=== PATIENT | female | born 1950 | race Caucasian/White ===

== ENCOUNTER 2017-01-02 06:21 | Emergency (ER) | payer MEDICARE, BC ==
[2017-01-02] MEDS ORDERED: ONDANSETRON HCL IV 4 MG/2 ML VIAL IV ONE (06:50)
[2017-01-02] MEDS ORDERED: KETOROLAC 30 MG/ML VIAL IVP ONE (06:50)
[2017-01-02] MEDS ORDERED: 0.9 % SODIUM CHLORIDE 1,000 ML BAG IV ONE (06:50)
--- NOTE | 2017-01-02 06:56 | Emergency Department Record ---
History of Present Illness - General Source: Patient Mode of Arrival: Ambulatory Limitations: No limitations - History of Present Illness Initial comments: pt has frequency and urgency but no dysuria. she states when she tries to urinate she cant though she feels like she has to go.. she has n but nov/c/d. she has r flank pain that wraps around to rlq. Complaint: Other Onset/Timin -: Hour(s) Location: RLQ Radiation: R flank Severity scale (1-10): 10 Quality: Aching Consistency: Constant Improves with: None Worsens with: None Associated Symptoms: Nausea/vomiting, Other <Eliza Castañeda - Last Filed: 01/02/17 06:49> <Michael Burnett - Last Filed: 01/02/17 08:47> - General Chief complaint: Female Urogenital Problem Stated complaint: POSS. UTI Time Seen by Provider: 01/02/17 06:42 - Related Data Home Medications Medication Instructions Recorded Confirmed Last Taken Lisinopril [Lisinopril] 10 mg PO DAILY 01/18/15 01/02/17 01/18/15 Alendronate Sodium [Fosamax] 70 mg PO WEEKLY 11/29/15 01/02/17 Unknown Hydrocodone/Acetaminophen 1 tab PO QID 11/29/15 01/02/17 Unknown [Hydrocodon-Acetaminoph 7.5-325] Previous Rx's Medication Instructions Recorded Ciprofloxacin HCl [Cipro] 1 tab PO Q12H #10 tab 01/02/17 Ibuprofen [Motrin] 800 mg PO TID PRN #20 tab 01/02/17 Tamsulosin HCl [Flomax] 0.4 mg PO DAILY #5 cap.er.24h 01/02/17 Allergies Allergy/AdvReac Type Severity Reaction Status Date / Time codeine Allergy VOMITING Verified 07/21/14 12:44 diazepam [From Valium] Allergy TACHYCARDIA Verified 01/18/15 19:52 meperidine HCl [From Demerol] Allergy ITCHING Verified 07/21/14 12:44 Penicillins Allergy HIVES Verified 07/21/14 12:44 Travel Screening - Travel/Exposure Within Last 30 Days Have you traveled within the last 30 days?: No - Travel Symptoms Symptom Screening: None <Eliza Castañeda - Last Filed: 01/02/17 06:49> Review of Systems Reviewed: No additional complaints except as noted below Constitutional: Reports: As per HPI. Denies: Chills, Fever, Malaise, Night sweats, Weakness, Weight change Eyes: Reports: As per HPI. Denies: Eye discharge, Eye pain, Photophobia, Vision change ENT: Reports: As per HPI. Denies: Congestion, Dental pain, Ear pain, Epistaxis , Hearing loss, Throat pain Respiratory: Reports: As per HPI. Denies: Cough, Dyspnea, Hemoptysis, Stridor, Wheezes Cardiovascular: Reports: As per HPI. Denies: Arrhythmia, Chest pain, Dyspnea on exertion, Edema, Murmurs, Orthopnea, Palpitations, Paroxysmal nocturnal dyspnea, Rheumatic Fever, Syncope Endocrine: Reports: As per HPI. Denies: Fatigue, Heat or cold intolerance, Polydipsia, Polyuria Gastrointestinal: Reports: As per HPI. Denies: Abdominal pain, Constipation, Diarrhea, Hematemesis, Hematochezia, Melena, Nausea, Vomiting Genitourinary: Reports: As per HPI. Denies: Abnormal menses, Discharge, Dyspareunia, Dysuria, Frequency, Hematuria, Incontinence, Retention, Urgency Musculoskeletal: Reports: As per HPI. Denies: Arthralgia, Back pain, Gout, Joint swelling, Myalgia, Neck pain Skin: Reports: As per HPI. Denies: Bruising, Change in color, Change in hair/ nails, Lesions, Pruritus, Rash Neurological: Reports: As per HPI. Denies: Abnormal gait, Confusion, Headache, Numbness, Paresthesias, Seizure, Tingling, Tremors, Vertigo, Weakness Psychiatric: Reports: As per HPI. Denies: Anxiety, Auditory hallucinations, Depression, Homicidal thoughts, Suicidal thoughts, Visual hallucinations Hematological/Lymphatic: Reports: As per HPI. Denies: Anemia, Blood Clots, Easy bleeding, Easy bruising, Swollen glands <Eliza Castañeda L - Last Filed: 01/02/17 06:49> Past Medical History - SOCIAL HISTORY Smoking Status: Never smoker - RESPIRATORY Hx Respiratory Disorders: No - CARDIOVASCULAR Hx Cardio Disorders: Yes Hx Hypertension: Yes Comment:: hypercholesteremia - NEURO Hx Neuro Disorders: No - GI Hx GI Disorders: No - Hx Genitourinary Disorders: No - ENDOCRINE Hx Endocrine Disorders: No - MUSCULOSKELETAL Hx Musculoskeletal Disorders: Yes Comment:: osteopenia; Shingles - PSYCH Hx Psych Problems: No - HEMATOLOGY/ONCOLOGY Hx Hematology/Oncology Disorders: No <GarryEliza - Last Filed: 01/02/17 06:49> Family Medical History Any Significant Family History?: Yes Hx Heart Disease: Grandparents <Antoni Castañedadwaine Govea - Last Filed: 01/02/17 06:49> Physical Exam - General General Appearance: Alert, Oriented x3, Cooperative, Mild distress - Head Head exam: Normal inspection - Eye Eye exam: Normal appearance, PERRL, EOMI Pupils: Normal accommodation - ENT ENT exam: Normal exam, Mucous membranes moist, Normal external ear exam, Normal orophraynx Ear exam: Normal external inspection. negative: External canal tenderness Nasal Exam: Normal inspection. negative: Discharge, Sinus tenderness Mouth exam: Normal external inspection, Tongue normal Teeth exam: Normal inspection. negative: Dental caries Throat exam: Normal inspection. negative: Tonsillar erythema, Tonsillar exudate - Neck Neck exam: Normal inspection, Full ROM. negative: Tenderness - Respiratory Respiratory exam: Normal lung sounds bilaterally. negative: Respiratory distress - Cardiovascular Cardiovascular Exam: Regular rate, Normal rhythm, Normal heart sounds - GI/Abdominal GI/Abdominal exam: Soft, Normal bowel sounds, Other (no reproducible tenderness) . negative: Tenderness - Rectal Rectal exam: Deferred - exam: Deferred - Extremities Extremities exam: Normal inspection, Full ROM, Normal capillary refill. negative: Tenderness - Back Back exam: Reports: Normal inspection, Full ROM. Denies: Muscle spasm, Rash noted, Tenderness - Neurological Neurological exam: Alert, CN II-XII intact, Normal gait, Oriented X3 - Psychiatric Psychiatric exam: Normal affect, Normal mood - Skin Skin exam: Dry, Intact, Normal color, Warm <GarryAntoniEliza L - Last Filed: 01/02/17 06:49> Course Vital Signs 01/02/17 06:27 Pulse Rate 84 Respiratory 20 Rate Blood Pressure 149/67 Pulse Ox 97 - Reevaluation(s) Reevaluation #1: 01/02/17 06:[address] burnett <Eliza Castañeda - Last Filed: 01/02/17 06:49> Vital Signs 01/02/17 01/02/17 01/02/17 06:27 07:57 08:38 Temperature 97.8 F 97.9 F Pulse Rate 84 Pulse Rate [ 78 Left] Respiratory 20 20 20 Rate Blood Pressure 149/67 Blood Pressure 134/82 [Left] Pulse Ox 97 97 98 - Reevaluation(s) Reevaluation #1: The patient is doing much better at this time. Her pain has completely resolved and she denies any nausea or vomiting. I did explain to her the CT results and the need for F/U. I also did discuss the case with her PCP Dr. Valdivia and she will see the patient early next week if F/U. The patient is to return to the ER for any increased pain, fever, or vomiting. 01/02/17 08:43 <Michael Burnett - Last Filed: 01/02/17 08:47> Medical Decision Making - Management Options MDM Management: Additional Work-up Planned (e.g. ADM/Transfer/OP Study) - Data Complexity MDM Data: Labs Ordered and/or Reviewed, X-Ray Ordered and/or Reviewed - Radiology Data Radiology results: Report reviewed, Image reviewed <Eliza Castañeda - Last Filed: 01/02/17 06:49> - Data Complexity MDM Data: Labs Ordered and/or Reviewed, X-Ray Ordered and/or Reviewed - Lab Data Result diagrams: 01/02/17 07:05 01/02/17 07:05 Lab Results 01/02/17 01/02/17 01/02/17 Range/Units 07:05 07:05 07:45 WBC 11.0 (4.2-12.2) K/uL RBC 5.20 (3.80-5.40) M/uL Hgb 14.7 (11.6-16.0) gm/dl Hct 44.4 (35.0-47.0) % MCV 85.4 (81-97) fl MCH 28.3 (27-33) pg MCHC 33.1 (32-36) g/dl RDW 13.3 (11.5-14.5) % Plt Count 317 (130-400) K/uL MPV 9.4 (7.4-10.4) fl Gran % 78.3 (47-80) % Lymphocytes % 13.7 L (16-45) % Monocytes % 6.0 (0-9) % Eosinophils % 1.5 (0-6) % Basophils % 0.5 (0-6) % Sodium 139 (136-145) mmol/L Potassium 3.8 (3.5-5.1) mmol/L Chloride 104 (98-107) mmol/L Carbon Dioxide 27.5 (22-30) mmol/L Anion Gap 7.5 (7-16) BUN 19 H (7-17) mg/dL Creatinine 0.9 (0.52-1.04) mg/dL Estimated GFR > 60 ml/min Random Glucose 152 H (70-110) mg/dL Calcium 9.0 (8.5-10.1) mg/dL Urine Color Yellow Urine Appearance Clear Urine pH 5.5 (5.0-8.0) Ur Specific [place] >= 1.030 (1.002-1.030) Urine Protein Negative (NEGATIVE) Urine Glucose (UA) Negative (NEGATIVE) Urine Ketones Negative (NEGATIVE) Urine Blood Moderate (NEGATIVE) Urine Nitrite Negative (NEGATIVE) Urine Bilirubin Negative (NEGATIVE) Urine Urobilinogen 0.2 (0.20 - 1.00) E.U./dL Ur Leukocyte Esterase Negative (NEGATIVE) Urine RBC 16 - 25 (NONE SEEN) Urine WBC 3 - 5 (0-2/hpf) Ur Epithelial Cells 7 - 10 (FEW) Urine Bacteria None seen - Radiology Data Radiology results: Report reviewed (CT: 1 mm stone at the R UVJ with mild hydro. ) <Michael Burnett - Last Filed: 01/02/17 08:47> Disposition <Eliza Castañeda - Last Filed: 01/02/17 06:49> Disposition: Discharge Time of Disposition: 08:47 <Michael Burnett - Last Filed: 01/02/17 08:47> Clinical Impression: Ureteric Colic Disposition: Home, Self-Care Condition: (1) Good Instructions: Renal Colic (ED) Additional Instructions: Please drink plenty of fluids and take the Motrin, Flomax and Cipro as directed. Please see your PCP early next week as planned. Please return to the ER for any increased pain, fever, or vomiting. Prescriptions: Ciprofloxacin HCl [Cipro] 1 tab PO Q12H #10 tab Tamsulosin HCl [Flomax] 0.4 mg PO DAILY #5 cap.er.24h Ibuprofen [Motrin] 800 mg PO TID PRN #20 tab PRN Reason: Pain Forms: Patient Portal Access
[2017-01-02 07:11] LABS: BASO % 0.5 % (0-6); EOS % 1.5 % (0-6); GRAN % 78.3 % (47-80); HEMATOCRIT 44.4 % (35.0-47.0); HEMOGLOBIN 14.7 gm/dl (11.6-16.0); LYMPH % 13.7 % (16-45); MEAN CELL VOLUME 85.4 fl (81-97); MEAN CORPUSCULAR HEMOGLOBIN 28.3 pg (27-33); MEAN CORPUSCULAR HGB CONC 33.1 g/dl (32-36); MEAN PLATELET VOLUME 9.4 fl (7.4-10.4); PLATELET COUNT 317 K/uL (130-400); RED CELL DISTRIBUTION WIDTH 13.3 % (11.5-14.5)
[2017-01-02 07:23] LABS: ANION GAP 7.5 (7-16); BLOOD UREA NITROGEN 19 mg/dL (7-17); CARBON DIOXIDE 27.5 mmol/L (22-30); CREATININE 0.9 mg/dL (0.52-1.04); EST GLOMERULAR FILTRATION RATE > 60 ml/min; GLUCOSE,RANDOM 152 mg/dL (70-110)
[2017-01-02 07:53] LABS: URINE APPEARANCE CLEAR; URINE BILIRUBIN NEGATIVE (NEGATIVE); URINE BLOOD MODERATE (NEGATIVE); URINE COLOR YELLOW; URINE GLUCOSE (UA) NEGATIVE (NEGATIVE); URINE KETONE NEGATIVE (NEGATIVE); URINE LEUKOCYTE ESTERASE NEGATIVE (NEGATIVE); URINE NITRITE NEGATIVE (NEGATIVE); URINE PROTEIN NEGATIVE (NEGATIVE); URINE UROBILINOGEN 0.2 E.U./dL (0.20 - 1.00)
[2017-01-02 08:03] LABS: URINE BACTERIA NONE SEEN; URINE RBC 16 - 25 (NONE SEEN)
[2017-01-02] MEDS ORDERED: CIPROFLOXACIN HCL 250 MG TABLET PO ONE (08:37)
[2017-01-02] MEDS ORDERED: CIPROFLOXACIN HCL 500 MG TABLET PO ONE (08:46)
--- NOTE | 2017-01-03 14:29 | CT SCAN REPORT ---
EXAM: CT OF THE ABDOMEN AND PELVIS WITHOUT CONTRAST HISTORY: RIGHT FLANK PAIN. TECHNIQUE: Sequential axial images were obtained from the diaphragms through the ischiorectal fossa without intravenous or oral contrast administration. FINDINGS: There is a 1 mm punctate calcification at the right ureteral vesicular junction. There is mild right hydronephrosis with perinephric and periureteral fat stranding. There are additional nonobstructing calculi in the right kidney. The nonopacified liver appears normal. There is a small sliding type hiatal hernia. The gallbladder has been surgically removed. The pancreas and spleen appear normal. The adrenal glands appear normal. The small bowel appears normal. The appendix is visualized and appears normal. The colon appears normal. The osseous structures are normal. IMPRESSION: 1 MM OBSTRUCTING CALCULUS AT THE RIGHT URETERAL VESICULAR JUNCTION. THIS PRODUCES MILD RIGHT HYDRONEPHROSIS WITH PERINEPHRIC AND PERIURETERAL FAT STRANDING. NONOBSTRUCTING CALCULI IN THE RIGHT KIDNEY. JOB NUMBER: [id number] MTDD
== END 2017-01-02 09:03 | disposition home or self-care (01) ==
LOC: ER 06:21
DX: N13.2 Hydronephrosis with renal and ureteral calculous obstruction (principal); R10.31 Right lower quadrant pain; R11.0 Nausea
CPT/HCPCS: 99284 ×2; 96374; 96375; 85025; 80048; 81001; 74176; J1885; J2405; J7030

== ENCOUNTER 2017-12-28 21:26 | Emergency (ER) | payer MEDICARE, BC ==
[2017-12-28] MEDS ORDERED: PROPARACAINE HCL OPTH 15ML BTL OPTH ONE (22:07)
--- NOTE | 2017-12-28 22:13 | Emergency Department Record ---
History of Present Illness - General Chief complaint: Eye Problem Stated complaint: FELL [employer] LT EYE Time Seen by Provider: 12/28/17 22:07 Source: Patient Mode of Arrival: Ambulatory Limitations: No limitations Travel/Exposure to [facility] Within 21 Days of Symptoms: No - History of Present Illness Initial comments: 67 yo female presents to ED for evaluation of injury to the left eye 1 hour ago. Patient reports that she was carrying in her groceries when she slipped and fell, small branch caused injury to the left medial eye. Patient denies change in vision, but was concerned about redness following her injury. MD chief complaint: Eye pain, Eye redness, Eye injury Onset/Timin -: Hour(s) Onset Description: Sudden Location: Left eye Place: Home If Injury: Direct trauma Eye Symptoms: Foreign body sensation Severity: Mild Consistency: Constant Context: Injury Treatments Prior to Arrival: None - Related Data Visual acuity (L) = 20/: 20 Visual acuity (R) = 20/: 20 With correction: No Previous Rx's Medication Instructions Recorded Ciprofloxacin HCl [Cipro] 1 tab PO Q12H #10 tab 01/02/17 Ibuprofen [Motrin] 800 mg PO TID PRN #20 tab 01/02/17 Tamsulosin HCl [Flomax] 0.4 mg PO DAILY #5 cap.er.24h 01/02/17 Allergies Allergy/AdvReac Type Severity Reaction Status Date / Time codeine Allergy VOMITING Verified 07/21/14 12:44 diazepam [From Valium] Allergy TACHYCARDIA Verified 01/18/15 19:52 meperidine HCl [From Demerol] Allergy ITCHING Verified 07/21/14 12:44 Penicillins Allergy HIVES Verified 07/21/14 12:44 Travel Screening - Travel/Exposure Within Last 30 Days Have you traveled within the last 30 days?: No - Travel/Exposure Within Last Year Have you traveled outside the [place] in the last year?: No - Additonal Travel Details Have you been exposed to anyone with a communicable illness?: No Review of Systems Constitutional: Denies: Chills, Fever, Malaise, Night sweats Eyes: Reports: Eye pain. Denies: Eye discharge ENT: Denies: Congestion, Ear pain, Epistaxis Respiratory: Denies: Cough, Dyspnea Cardiovascular: Denies: Chest pain, Dyspnea on exertion Endocrine: Denies: Fatigue, Heat or cold intolerance Gastrointestinal: Denies: Abdominal pain, Nausea, Vomiting Genitourinary: Denies: Incontinence, Retention Musculoskeletal: Denies: Arthralgia, Back pain, Gout, Joint swelling Skin: Denies: Bruising, Change in color Neurological: Denies: Abnormal gait, Confusion, Headache, Seizure Psychiatric: Denies: Anxiety Hematological/Lymphatic: Denies: Anemia, Blood Clots Past Medical History - SOCIAL HISTORY Smoking Status: Never smoker Alcohol Use: None Drug Use: None - RESPIRATORY Hx Respiratory Disorders: No - CARDIOVASCULAR Hx Cardio Disorders: Yes Hx Hypertension: Yes Comment:: hypercholesteremia - NEURO Hx Neuro Disorders: No - GI Hx GI Disorders: No - Hx Genitourinary Disorders: No - ENDOCRINE Hx Endocrine Disorders: No - MUSCULOSKELETAL Hx Musculoskeletal Disorders: Yes Comment:: osteopenia; Shingles - PSYCH Hx Psych Problems: No - HEMATOLOGY/ONCOLOGY Hx Hematology/Oncology Disorders: No Family Medical History Any Significant Family History?: No Hx Heart Disease: Grandparents Physical Exam - General General Appearance: Alert, Oriented x3, Cooperative, No acute distress Limitations: No limitations - Head Head exam: Atraumatic, Normocephalic, Normal inspection Head exam detail: negative: Abrasion, Contusion, Collazo's sign, General tenderness, Hematoma, Laceration - Eye Eye exam: Other (Partial tear through the medial sclera left eye, NEGATIVE CHRIS'S). negative: Conjunctival injection, Periorbital swelling, Periorbital tenderness, Scleral icterus - ENT Ear exam: negative: Auricular hematoma, Auricular trauma Nasal Exam: negative: Active bleeding, Discharge, Dried blood, Foreign body Mouth exam: negative: Drooling, Laceration, Muffled voice, Tongue elevation - Neck Neck exam: Normal inspection. negative: Meningismus, Tenderness - Respiratory Respiratory exam: Normal lung sounds bilaterally. negative: Rales, Respiratory distress, Rhonchi, Stridor - Cardiovascular Cardiovascular Exam: Regular rate, Normal rhythm, Normal heart sounds - GI/Abdominal GI/Abdominal exam: Soft. negative: Rebound, Rigid, Tenderness - Rectal Rectal exam: Deferred - exam: Deferred - Extremities Extremities exam: Normal inspection. negative: Calf tenderness, Pedal edema, Tenderness - Back Back exam: Denies: CVA tenderness (R) - Neurological Neurological exam: Alert, Normal gait, Oriented X3 - Psychiatric Psychiatric exam: Normal affect, Normal mood - Skin Skin exam: Normal color. negative: Abrasion Type of lesion: negative: abrasion Course Vital Signs 12/28/17 21:54 Temperature 97.8 F Pulse Rate [ 96 H Pulse Ox Probe] Respiratory 18 Rate Blood Pressure 177/90 [Left Arm] Pulse Ox 99 - Reevaluation(s) Reevaluation #1: 12/28/17 22:13 Case was discussed with Dr. Cornejo, agrees that the patient's symptoms are likely secondary to an incomplete tear through the medial sclera. There is no clinical evidence for globe perforation on examination. Patient's VA: 20/20 Left 20/20 Right 20/20 Bilaterally Will initiate treatment with Ofloxacin eye drops with follow-up tomorrow in Dr. Maher's office. Disposition Disposition: Discharge Clinical Impression: Abrasion of sclera of left eye Qualifiers: Encounter type: initial encounter Qualified Code(s): S05.8X2A - Other injuries of left eye and orbit, initial encounter Disposition: Home, Self-Care Condition: (2) Stable Instructions: Corneal Abrasion (ED) Additional Instructions: Return to ED if your symptoms worsen or if you have any concerns. Erythromycin ointment four times daily. Follow-up with Dr. Cornejo tomorrow, call in the morning for appointment. Referrals: CHENG CORNEJO [MEDICAL DOCTOR] - Forms: Patient Portal Access Time of Disposition: 22:22 Quality - Quality Measures Quality Measures: N/A - Blood Pressure Screening Does Patient Have Any of the Following: Active Dx of HTN Blood Pressure Classification: Hypertensive Reading Systolic Measurement: 177 Diastolic Measurement: 90 Screening for High Blood Pressure: Patient Exclusion, Hx of HTN [[id number]]
[2017-12-28] MEDS ORDERED: ERYTHROMYCIN OPTH OINT 3.5GM OPTH ONE (22:31)
== END 2017-12-28 22:39 | disposition home or self-care (01) ==
LOC: ER 21:26
DX: S05.8X2A Other injuries of left eye and orbit, initial encounter (principal); W01.198A Fall on same level from slipping, tripping and stumbling with subsequent striking against other object, initial encounter; I10 Essential (primary) hypertension
CPT/HCPCS: 99283